=== PATIENT | male | born 1965 | race Caucasian/White ===

== ENCOUNTER 2017-02-17 08:35 | Inpatient (IN) | payer OTHER ==
[~2017-02-17] VITALS: Ht 172.7 cm; Wt 80.0 kg
[2017-02-17 10:50] LABS: CALCIUM 9.3 mg/dL (8.5-10.1); CARBON DIOXIDE 32.4 mmol/L (21-32); CHLORIDE SERUM 103 mmol/L (98-107); CREATININE SERUM 0.9 mg/dL (0.7-1.3); GFR1 > 60 mL/min; GLUCOSE SERUM 105 mg/dL (74-106); POTASSIUM SERUM 3.6 mmol/L (3.5-5.1); SODIUM SERUM 142 mmol/L (136-145)
[2017-02-17 10:52] LABS: RED CELL DISTRIBUTION WIDTH 12.7 % (11.5-14.5)
[2017-02-17 10:53] LABS: ALBUMIN 3.7 g/dL (3.4-5.0); ALKALINE PHOSPHATASE 68 U/L (46-116); ALT/SGPT 34 U/L (16-63); AST/SGOT 20 U/L (15-37); BILIRUBIN TOTAL 0.4 mg/dL (0.20-1.00); LIPASE 162 IU/L (73-393)
[2017-02-17 10:57] LABS: PLATELET COUNT 108 x10^3mcL (130-400)
[2017-02-17 10:59] LABS: TOTAL PROTEIN, SERUM 8.4 g/dL (6.4-8.2)
[2017-02-17 11:24] LABS: BAND NEUTROPHIL 3 % (0-10); BASOPHIL 0 % (0-2); MONOCYTE 8 % (0-7); SEGMENTED NEUTROPHILS 28 % (37-75)
[2017-02-17 11:25] LABS: PLATELET MORPHOLOGY PLATELETS DECREASED
[2017-02-17 13:12] LABS: T3 TOTAL 1.03 ng/mL
[2017-02-17 13:19] LABS: CHOLESTEROL/HDL RATIO 4.4; MAGNESIUM 2.2 mg/dL (1.8-2.4); PHOSPHOROUS 3.2 mg/dL (2.5-4.9)
[2017-02-17] MEDS ORDERED: FLUOXETINE HYDR20 M2 PO (13:21)
[2017-02-17] MEDS ORDERED: PEPCID20 MG PO (13:22)
[2017-02-17] MEDS ORDERED: LORAZEPAM1 MG PO (13:22)
[2017-02-17] MEDS ORDERED: OMEGA 3 FISH O1 EACH PO (13:22)
[2017-02-17] MEDS ORDERED: NIACIN500 M3 PO (13:23)
[2017-02-17] MEDS ORDERED: TRAZODONE100 MG PO (13:23)
[2017-02-17] MEDS ORDERED: SEROQUEL100 MG PO (13:23)
[2017-02-17 13:47] LABS: FREE T4 0.82 ng/dL (0.76-1.46); FREE THYROXINE INDEX 2.3 ug/dL (1.4-4.5); T4(THYROXINE) 6.5 ug/dL (4.7-13.3)
[2017-02-17 13:50] VITALS: BP 119/57
[2017-02-17] MEDS ORDERED: LORAZEPAM2 MG PO (16:55)
[2017-02-17 21:25] VITALS: BP 105/52
[2017-02-18 03:32] VITALS: BP 121/55
[2017-02-18 06:33] LABS: RED CELL DISTRIBUTION WIDTH 12.3 % (11.5-14.5)
[2017-02-18 06:53] LABS: PLATELET COUNT 106 x10^3mcL (130-400)
[2017-02-18 07:02] LABS: CALCIUM 8.7 mg/dL (8.5-10.1); CARBON DIOXIDE 25.2 mmol/L (21-32); CHLORIDE SERUM 107 mmol/L (98-107); CREATININE SERUM 0.9 mg/dL (0.7-1.3); GFR1 > 60 mL/min; GLUCOSE SERUM 110 mg/dL (74-106); POTASSIUM SERUM 3.5 mmol/L (3.5-5.1); SODIUM SERUM 143 mmol/L (136-145)
[2017-02-18 08:18] LABS: microscopic required? YES; urine erythrocyte NEGATIVE (NEGATIVE)
[2017-02-18 08:40] VITALS: BP 103/61
[2017-02-18 09:08] VITALS: BP 113/66
[2017-02-18 14:25] LABS: BAND NEUTROPHIL 4 % (0-10); MONOCYTE 12 % (0-7); SEGMENTED NEUTROPHILS 47 % (37-75)
[2017-02-18 14:29] LABS: PLATELET MORPHOLOGY PLATELETS DECREASED; rbc morphology (normal/abnorm) NORMAL (NORMAL)
[2017-02-18 18:10] VITALS: BP 100/61
[2017-02-18 19:47] VITALS: BP 115/61
[2017-02-19 06:46] VITALS: BP 121/64
[2017-02-19 07:26] LABS: RED CELL DISTRIBUTION WIDTH 12.6 % (11.5-14.5)
[2017-02-19 07:29] LABS: CALCIUM 8.4 mg/dL (8.5-10.1); CARBON DIOXIDE 28.5 mmol/L (21-32); CHLORIDE SERUM 108 mmol/L (98-107); CREATININE SERUM 0.8 mg/dL (0.7-1.3); GFR1 > 60 mL/min; GLUCOSE SERUM 134 mg/dL (74-106); POTASSIUM SERUM 3.6 mmol/L (3.5-5.1); SODIUM SERUM 140 mmol/L (136-145)
[2017-02-19 07:34] LABS: PLATELET COUNT 90 x10^3mcL (130-400)
[2017-02-19 08:00] VITALS: BP 123/70
[2017-02-19 08:31] LABS: BAND NEUTROPHIL 0 % (0-10); BASOPHIL 0 % (0-2); MONOCYTE 11 % (0-7); PLATELET MORPHOLOGY PLATELETS DECREASED; SEGMENTED NEUTROPHILS 45 % (37-75)
[2017-02-19 09:32] VITALS: Ht 172.7 cm; Wt 80.0 kg
[2017-02-19 09:57] VITALS: BP 136/86
[2017-02-19 12:45] VITALS: BP 105/56; BP 126/80
[2017-02-19 16:47] VITALS: BP 113/73
[2017-02-19 20:10] VITALS: BP 104/64
[2017-02-20 05:18] VITALS: BP 116/67
[2017-02-20 09:14] VITALS: BP 107/60
[2017-02-20 09:36] LABS: CARBON DIOXIDE 31.4 mmol/L (21-32); CHLORIDE SERUM 105 mmol/L (98-107); CREATININE SERUM 0.9 mg/dL (0.7-1.3); GFR1 > 60 mL/min; GLUCOSE SERUM 155 mg/dL (74-106); POTASSIUM SERUM 3.8 mmol/L (3.5-5.1); SODIUM SERUM 141 mmol/L (136-145)
[2017-02-20 09:43] LABS: RED CELL DISTRIBUTION WIDTH 12.5 % (11.5-14.5)
[2017-02-20 09:45] LABS: PLATELET COUNT 95 x10^3mcL (130-400)
[2017-02-20 10:29] LABS: BAND NEUTROPHIL 0 % (0-10); BASOPHIL 0 % (0-2); MONOCYTE 13 % (0-7); SEGMENTED NEUTROPHILS 45 % (37-75)
[2017-02-20 10:30] LABS: PLATELET MORPHOLOGY PLATELETS DECREASED
[2017-02-20] MEDS ORDERED: GOOD NEIGHBOR P20 M2 PO (11:50)
[2017-02-20] MEDS ORDERED: CARAFATE1 GM/10 ML PO (11:50)
[2017-02-20] MEDS ORDERED: COLACE100 MG PO (12:09)
[2017-02-20] MEDS ORDERED: MIRALAX17 GM/Dose PO (12:09)
[2017-02-20 12:44] VITALS: BP 107/60
== END 2017-02-20 13:35 | DRG 368 ==
LOC: ED 08:35 → MU 12:34 → DU 12:34 → MU 02-18 19:32
PROVIDERS: Emergency Medicine; Internal Medicine; ADMIT Family Medicine
PROC: 0DB68ZX Excision of Stomach, Via Natural or Artificial Opening Endoscopic, Diagnostic (ICD-10-PCS; 2017-02-18)
PROC: 0D718ZZ Dilation of Upper Esophagus, Via Natural or Artificial Opening Endoscopic (ICD-10-PCS; principal; 2017-02-18 08:00)
PROC: 0DB18ZX Excision of Upper Esophagus, Via Natural or Artificial Opening Endoscopic, Diagnostic (ICD-10-PCS; 2017-02-18 08:00)
DX: Q39.4 Esophageal web (principal); K29.71 Gastritis, unspecified, with bleeding; N17.0 Acute kidney failure with tubular necrosis; R65.10 Systemic inflammatory response syndrome (SIRS) of non-infectious origin without acute organ dysfunction; K29.80 Duodenitis without bleeding; K56.41 Fecal impaction; R73.03 Prediabetes; D72.819 Decreased white blood cell count, unspecified; K80.20 Calculus of gallbladder without cholecystitis without obstruction; D64.9 Anemia, unspecified; F79 Unspecified intellectual disabilities; F42.4 Excoriation (skin-picking) disorder; F60.5 Obsessive-compulsive personality disorder; F25.0 Schizoaffective disorder, bipolar type; F41.1 Generalized anxiety disorder; G47.00 Insomnia, unspecified; H26.9 Unspecified cataract; Z86.14 Personal history of Methicillin resistant Staphylococcus aureus infection
CPT/HCPCS: 43235; 82962; 83880; 84439; 92610-GN; C1769; C9113; J1200; J1610; J1956; J2250; J2270; J2310; J2405; J3010; J3486; J3490; J7030

== ENCOUNTER 2017-03-23 10:47 | Emergency (ER) | payer OTHER ==
[~2017-03-23] VITALS: Ht 172.7 cm; Wt 73.9 kg
[~2017-03-23 10:47] MED LIST: CARAFATE1 GM/10 ML PO; COLACE100 MG PO; FLUOXETINE HYDR20 M2 PO; GOOD NEIGHBOR P20 M2 PO; LORAZEPAM1 MG PO; LORAZEPAM2 MG PO; MIRALAX17 GM/Dose PO; NIACIN500 M3 PO; OMEGA 3 FISH O1 EACH PO; PEPCID20 MG PO; SEROQUEL100 MG PO; TRAZODONE100 MG PO
[2017-03-23 10:49] VITALS: Ht 172.7 cm; Wt 73.9 kg
[2017-03-23 11:51] VITALS: BP 129/68
== END 2017-03-23 11:35 | disposition home or self-care (01) ==
LOC: ED 10:47
DX: L02.413 Cutaneous abscess of right upper limb (principal); K21.9 Gastro-esophageal reflux disease without esophagitis

== ENCOUNTER 2017-03-25 08:46 | Emergency (ER) | payer OTHER ==
[~2017-03-25] VITALS: Ht 170.2 cm; Wt 72.6 kg
[2017-03-25 08:57] VITALS: Ht 170.2 cm; Wt 72.6 kg
== END 2017-03-25 12:56 | disposition home or self-care (01) ==
LOC: ED 08:46
DX: Z48.01 Encounter for change or removal of surgical wound dressing (principal); K21.9 Gastro-esophageal reflux disease without esophagitis

== ENCOUNTER 2017-07-11 17:48 | Inpatient (IN) | payer OTHER ==
[~2017-07-11] VITALS: Ht 175.3 cm; Wt 72.3 kg
[2017-07-11 19:36] LABS: RED CELL DISTRIBUTION WIDTH 13.6 % (11.5-14.5)
[2017-07-11 19:38] LABS: BASOPHIL % 0 % (0-2); PLATELET COUNT 85 x10^3mcL (130-400)
[2017-07-11 19:48] LABS: CALCIUM 9.1 mg/dL (8.5-10.1); CARBON DIOXIDE 33.4 mmol/L (21-32); CHLORIDE SERUM 98 mmol/L (98-107); CREATININE SERUM 1.1 mg/dL (0.7-1.3); GFR1 > 60 mL/min; GLUCOSE SERUM 168 mg/dL (74-106); POTASSIUM SERUM 3.9 mmol/L (3.5-5.1); SODIUM SERUM 136 mmol/L (136-145)
[2017-07-11 19:52] LABS: ALKALINE PHOSPHATASE 62 U/L (46-116); ALT/SGPT 25 U/L (16-63); AST/SGOT 18 U/L (15-37); BILIRUBIN TOTAL 0.64 mg/dL (0.20-1.00); TOTAL PROTEIN, SERUM 7.6 g/dL (6.4-8.2)
[2017-07-11 19:53] LABS: ALBUMIN 3.3 g/dL (3.4-5.0)
[2017-07-11 20:03] LABS: microscopic required? YES; urine erythrocyte NEGATIVE (NEGATIVE)
[2017-07-11] MEDS ORDERED: [UNRECOGNIZED DRUG - OTHER] (20:44)
[2017-07-11] MEDS ORDERED: LORAZEPAM2 MG PO (20:44)
[2017-07-11] MEDS ORDERED: BLISTEX MEDICATE6 GM (20:45)
[2017-07-11] MEDS ORDERED: DOXEPIN HCL25 MG PO (20:45)
[2017-07-11] MEDS ORDERED: SEROQUEL100 MG PO (20:45)
[2017-07-11] MEDS ORDERED: BANOPHEN12.5 MG/5 PO (20:46)
[2017-07-11] MEDS ORDERED: KEN025C (20:46)
[2017-07-11 21:16] LABS: CHOLESTEROL/HDL RATIO 2.8; MAGNESIUM 1.9 mg/dL (1.8-2.4); PHOSPHOROUS 1.2 mg/dL (2.5-4.9)
[2017-07-11 21:21] LABS: T3 TOTAL 0.66 ng/mL
[2017-07-11 21:24] LABS: FREE T4 0.76 ng/dL (0.76-1.46); FREE THYROXINE INDEX 1.7 ug/dL (1.4-4.5)
[2017-07-11 22:39] VITALS: BP 98/50
[2017-07-11 22:44] VITALS: Ht 175.3 cm; Wt 72.3 kg
[2017-07-11] MEDS ORDERED: TRAZODONE50 M1 PO (22:53)
[2017-07-12 05:21] VITALS: BP 103/59
[2017-07-12 07:29] LABS: CALCIUM 8.3 mg/dL (8.5-10.1); CARBON DIOXIDE 27.9 mmol/L (21-32); CHLORIDE SERUM 103 mmol/L (98-107); CREATININE SERUM 0.9 mg/dL (0.7-1.3); GFR1 > 60 mL/min; GLUCOSE SERUM 124 mg/dL (74-106); MAGNESIUM 1.8 mg/dL (1.8-2.4); PHOSPHOROUS 2.5 mg/dL (2.5-4.9); POTASSIUM SERUM 3.8 mmol/L (3.5-5.1); SODIUM SERUM 137 mmol/L (136-145)
[2017-07-12 08:15] LABS: BASOPHIL % 0.5 % (0-2); PLATELET COUNT 72 x10^3mcL (130-400)
[2017-07-12 09:31] VITALS: BP 100/68
[2017-07-12 13:18] VITALS: BP 91/64
[2017-07-12 14:43] LABS: AMPHETAMINE QUAL UR NONE DETECTED (NEG <=1000)
[2017-07-12 16:26] VITALS: BP 118/69
[2017-07-12 22:30] VITALS: BP 94/58
[2017-07-13 06:27] VITALS: BP 108/62
[2017-07-13 11:08] LABS: RED CELL DISTRIBUTION WIDTH 14.1 % (11.5-14.5)
[2017-07-13 11:10] LABS: PLATELET COUNT 59 x10^3mcL (130-400)
[2017-07-13 11:41] LABS: BAND NEUTROPHIL 0 % (0-10); BASOPHIL 0 % (0-2); MONOCYTE 9 % (0-7); PLATELET MORPHOLOGY PLATELETS DECREASED; SEGMENTED NEUTROPHILS 65 % (37-75)
[2017-07-13 12:02] LABS: CALCIUM 8.3 mg/dL (8.5-10.1); CARBON DIOXIDE 26.3 mmol/L (21-32); CHLORIDE SERUM 108 mmol/L (98-107); CREATININE SERUM 0.8 mg/dL (0.7-1.3); GFR1 > 60 mL/min; GLUCOSE SERUM 124 mg/dL (74-106); PHOSPHOROUS 1.6 mg/dL (2.5-4.9); POTASSIUM SERUM 3.7 mmol/L (3.5-5.1); SODIUM SERUM 139 mmol/L (136-145)
[2017-07-13 14:41] VITALS: BP 118/64
[2017-07-13 18:11] VITALS: BP 119/60
[2017-07-13 20:59] VITALS: BP 96/56
[2017-07-14 06:33] LABS: RED CELL DISTRIBUTION WIDTH 14.4 % (11.5-14.5)
[2017-07-14 06:39] VITALS: BP 127/73
[2017-07-14 06:45] LABS: CALCIUM 8.2 mg/dL (8.5-10.1); CARBON DIOXIDE 25.2 mmol/L (21-32); CHLORIDE SERUM 104 mmol/L (98-107); CREATININE SERUM 0.9 mg/dL (0.7-1.3); GFR1 > 60 mL/min; GLUCOSE SERUM 112 mg/dL (74-106); MAGNESIUM 1.7 mg/dL (1.8-2.4); PHOSPHOROUS 2.1 mg/dL (2.5-4.9); POTASSIUM SERUM 3.5 mmol/L (3.5-5.1); SODIUM SERUM 137 mmol/L (136-145)
[2017-07-14 07:15] LABS: PLATELET COUNT 82 x10^3mcL (130-400)
[2017-07-14 10:00] VITALS: BP 151/73
[2017-07-14 10:50] LABS: BAND NEUTROPHIL 1 % (0-10); MONOCYTE 7 % (0-7); SEGMENTED NEUTROPHILS 61 % (37-75); rbc morphology (normal/abnorm) NORMAL (NORMAL)
[2017-07-14] MEDS ORDERED: LEVAQUIN750 MG PO (14:23)
[2017-07-14] MEDS ORDERED: CLINDAMYCIN HC300 MG PO (14:24)
[2017-07-14] MEDS ORDERED: LAC PO (14:25)
[2017-07-14 14:48] VITALS: BP 151/73
== END 2017-07-14 18:17 | DRG 871 ==
LOC: ED 17:48 → DU 20:31
PROVIDERS: Emergency Medicine; Family Medicine; Internal Medicine
PROC: 0DJ08ZZ Inspection of Upper Intestinal Tract, Via Natural or Artificial Opening Endoscopic (ICD-10-PCS; principal; 2017-07-13 08:00)
DX: A41.9 Sepsis, unspecified organism (principal); J69.0 Pneumonitis due to inhalation of food and vomit; N17.0 Acute kidney failure with tubular necrosis; J96.01 Acute respiratory failure with hypoxia; D61.811 Other drug-induced pancytopenia; F72 Severe intellectual disabilities; R65.20 Severe sepsis without septic shock; K21.9 Gastro-esophageal reflux disease without esophagitis; F41.9 Anxiety disorder, unspecified; R73.03 Prediabetes; G80.9 Cerebral palsy, unspecified; R13.12 Dysphagia, oropharyngeal phase; E83.39 Other disorders of phosphorus metabolism; E83.42 Hypomagnesemia; H54.8 Legal blindness, as defined in USA; Z98.42 Cataract extraction status, left eye; Z98.41 Cataract extraction status, right eye; Z82.49 Family history of ischemic heart disease and other diseases of the circulatory system; Z82.3 Family history of stroke; Z80.42 Family history of malignant neoplasm of prostate
CPT/HCPCS: 36600; 43235; 83880; 84439; 85060; 92610; 94150; J1200; J1610; J1630; J1956; J2060; J2250; J2310; J3010; J3475; J3486; J3490; J7030; J7613; J7620; J7644; Q0092

== ENCOUNTER → 2017-11-18 | Outpatient (CLI) | payer OTHER ==
[~2017-11-18] MED LIST changes: +BANOPHEN12.5 MG/5 PO; +BLISTEX MEDICATE6 GM; +CLINDAMYCIN HC300 MG PO; +DOK COLACE100 MG PO; +DOXEPIN HCL25 MG PO; +FLA500 PO; +KEN025C; +LAC PO; +LEVAQUIN750 MG PO; +MUCINEX600 MG PO; +TRAZODONE50 M1 PO; +[UNRECOGNIZED DRUG - OTHER]
== END | disposition home or self-care (01) ==
LOC: US 10:15
PROC: BV44ZZZ Ultrasonography of Scrotum (ICD-10-PCS; principal; 2017-11-18)
DX: N50.89 Other specified disorders of the male genital organs (principal)

== ENCOUNTER → 2018-07-25 | Outpatient (CLI) | payer OTHER | END | disposition home or self-care (01) | LOC: RD 10:43 | DX: Z01.818 Encounter for other preprocedural examination (principal) ==

== ENCOUNTER 2019-05-28 08:25 | Emergency (ER) | payer OTHER ==
[~2019-05-28] VITALS: Ht 175.3 cm; Wt 73.0 kg
[2019-05-28 11:51] VITALS: BP 132/89
== END 2019-05-28 11:51 | disposition home or self-care (01) ==
LOC: ED 08:25
DX: M25.552 Pain in left hip (principal); M54.5 Low back pain; E11.9 Type 2 diabetes mellitus without complications; K21.9 Gastro-esophageal reflux disease without esophagitis; W50.0XXA Accidental hit or strike by another person, initial encounter; Y93.89 Activity, other specified; Y92.89 Other specified places as the place of occurrence of the external cause; Y99.8 Other external cause status

== ENCOUNTER 2020-03-12 00:13 | Emergency (ER) | payer OTHER ==
[~2020-03-12] VITALS: Ht 175.3 cm; Wt 74.8 kg
[2020-03-12 00:15] VITALS: BP 108/71; Ht 175.3 cm; Wt 74.8 kg
== END 2020-03-12 03:24 | disposition home or self-care (01) ==
LOC: ED 00:13
DX: S01.112A Laceration without foreign body of left eyelid and periocular area, initial encounter (principal); E11.9 Type 2 diabetes mellitus without complications; K21.9 Gastro-esophageal reflux disease without esophagitis; W18.30XA Fall on same level, unspecified, initial encounter; Y93.89 Activity, other specified; Y92.89 Other specified places as the place of occurrence of the external cause; Y99.8 Other external cause status
CPT/HCPCS: 90715; J2001

== ENCOUNTER 2020-03-19 16:03 | Emergency (ER) | payer OTHER ==
[~2020-03-19] VITALS: Ht 167.6 cm; Wt 72.6 kg
[2020-03-19 16:18] VITALS: BP 115/63; Ht 167.6 cm; Wt 72.6 kg
== END 2020-03-19 16:25 | disposition home or self-care (01) ==
LOC: ED 16:03
DX: S01.81XD Laceration without foreign body of other part of head, subsequent encounter (principal); E11.9 Type 2 diabetes mellitus without complications; K21.9 Gastro-esophageal reflux disease without esophagitis; X58.XXXD Exposure to other specified factors, subsequent encounter